=== PATIENT | male | born 1990 | race Caucasian/White ===

== ENCOUNTER 2019-04-24 14:47 | Inpatient (IN) ==
--- NOTE | 2019-04-24 14:52 | Emergency Department Note ---
Disposition Clinical Impression: Suicidal ideation Disposition: Admitted As Inpatient Condition: Fair Time of Disposition: 17:33 Psych HPI - General Chief Complaint: ED Psychiatric Symptoms Stated Complaint: SI Time Seen by Provider: 04/24/19 14:52 Source: patient Mode of arrival: ambulatory Limitations: no limitations Nursing Notes Reviewed: Yes Vital Signs Reviewed: Yes - History of Present Illness HPI Narrative: 29-year-old male no significant past medical history with a psychiatric history of anxiety and depression presenting for a 4 week history of suicidal ideation. Patient states that he has had multiple intrusive thoughts of killing himself but denies active hallucination or plan for suicide. Patient denies any prior attempts at suicide including any traumatic attempts or ingestion of any medications or other toxins and attempt to self-harm. Patient admits to rece ntly smoking marijuana within the last 2-3 days but denies any other drug ingestions or ethanol. Patient states that he has been voluntarily admitted for psychiatric evaluation in the past and that he is coming in today specifically to allow for medication balancing as he feels he is not on the correct dose of Zoloft for his symptoms. Patient states he has a mass next week off work and would like to have an admission during this time to realign his medication regimen. Patient denies any current concerns or complaints. Pt complaint: suicidal ideation, feels depressed, anxiety Onset (ago): month(s) Duration: getting worse History of similar episodes: Yes Improves with: medication, therapy Context: recent drug abuse Alleged intoxication: No Associated Psychiatric Symptoms: suicidal ideation, anxiety Associated symptoms: Reports: denies other symptoms Traumatic symptoms: denies traumatic injury Treatments prior to arrival: none Self harm or harm to others: admits thoughts of self harm, denies having a plan - Related Data Previous Rx's Medication Instructions Recorded Dicyclomine [Bentyl] 10 mg PO QID #20 capsule 03/22/19 Allergies Allergy/AdvReac Type Severity Reaction Status Date / Time polymyxin B Allergy Hives Verified 05/11/18 17:03 Sulfa (Sulfonamide Allergy Hives Verified 05/11/18 17:03 Antibiotics) Review of Systems: *See History of Present Illness for more detail Constitutional: Denies: fever, chills Cardiovascular: Denies: chest pain Respiratory: Denies: dyspnea, cough, hemoptysis Gastrointestinal: Denies: abdominal pain, nausea, vomiting, diarrhea, constipation, hematemesis, melena, hematochezia Genitourinary: Denies: hematuria Musculoskeletal: Denies: back pain, neck pain Neurological: Denies: headache, weakness, lightheadedness/dizziness, numbness, paresthesias, difficulty with ambulation. Endocrine: Denies: fatigue All systems ED: reviewed and negative except as stated. Review of Systems: As Per HPI Past Medical History - Past Medical History Medical history: Reports: non-contributory Psychiatric history: Reports: no psych history - Social History Smoking Status: Never smoker Smokeless Tobacco Status: No Alcohol use: Reports: none Drug use: Reports: none Physical Exam Constitutional: No acute distress, [id number], engaged to conversation, speech is fluid, answers questions appropriately Neuro: GCS 15, no overt focal neurological deficits Head: Atraumatic, normocephalic Eyes: Pupils equal, round and reactive to light, no scleral icterus, no conjunctival injection Neck: Trachea midline without deviation. Anterior neck is supple without swelling. *Chest: Symmetric chest wall rise *Heart: Cardiac rhythm and rate are regular with S1 and S2 , no S3 or S4 appreciated, no murmurs, gallops, rubs, or clicks. *Lungs: Lungs are clear to auscultation bilaterally, without accessory muscle use or prolonged expiratory phase. No wheezes, rhonchi or stridor appreciated. Abdomen: Abdomen is flat, soft to palpation, normal bowel sounds. No abdominal bruit auscultated. Non-distended, non-rigid, no organomegaly, no ascites appreciated. No pulsatile mass, no tenderness or guarding to palpation in all four quadrants, no rebound Extremities: Normal capillary refill without evidence of pedal edema, joint swelling or erythema. Pulses/motor/sensory intact in all 4 extremities. Psychiatric exam: Patient displays a normal affect and mood for the environment. No overt signs of hallucination. Integumentary: warm, dry, intact, normal color. No rash, cyanosis, diaphoresis, erythema, or pallor - General Limitations: no limitations General appearance: alert, in no apparent distress Course Course Narrative: Psychiatric labs to include salicylate, acetaminophen, ethanol, urine toxicology [place] slip is on file Vital Signs Temperature 98.3 F 04/24/19 14:48 Pulse Rate 100 04/24/19 14:48 Respiratory Rate 14 04/24/19 14:48 Blood Pressure 123/67 04/24/19 14:48 O2 Sat by Pulse Oximetry 96 04/24/19 14:48 Temperature 98.3 F 04/24/19 16:10 Pulse Rate 100 04/24/19 16:10 Respiratory Rate 14 04/24/19 16:10 Blood Pressure 123/67 04/24/19 16:10 O2 Sat by Pulse Oximetry 96 04/24/19 16:10 Oxygen Delivery Oxygen Delivery Room Air Psych - MDM Narrative Medical decision making narrative: 1614 hrs.: Labs are back. He does have marijuana in his urine. I spoke with [facility]A for evaluation emergency department. He is in agreement with plan. Sitter's in place an 72 hold is signed. 1733 hrs.: [facility]A has evaluated the patient and are going to admit him at this time. 72 hour hold is still in place. Patient's agreement to the admission. - Lab Data Result diagrams: 04/24/19 15:06 04/24/19 15:06 Lab Results 04/24/19 04/24/19 04/24/19 Range/Units 15:06 15:06 15:31 WBC 8.4 (4.3-11.1) K/mcL RBC 5.01 (4.19-5.50) M/mcL Hgb 15.9 (12.9-16.9) g/dL Hct 46.4 (37.5-50.1) % MCV 92.6 (83.0-100.0) fL MCH 31.7 (28.0-33.3) pg MCHC 34.3 (31.6-35.5) g/dL RDW 12.9 (11.5-14.5) % Plt Count 175 (140-400) K/mcL MPV 12.6 H (9.4-12.4) fL Immature Gran % 0.4 (0-4) % Seg Neutrophils % 69.0 % Lymphocytes % 21.3 % Monocytes % 6.5 % Eosinophils % 2.4 % Basophils % 0.4 % Neutrophils # 5.8 (1.6-8.9) K/mcL Lymphocytes # 1.8 (0.6-4.6) K/mcL Monocytes # 0.5 (0.0-1.3) K/mcL Eosinophils # 0.2 (0.0-0.6) K/mcL Basophils # 0.0 (0.0-0.2) K/mcL Sodium 138 (136-145) mEq/L Potassium 3.5 (3.5-5.1) mEq/L Chloride 104 (98-107) mEq/L Carbon Dioxide 22 L (23-29) mEq/L BUN 10 (6-20) mg/dL Creatinine 0.83 (0.70-1.30) mg/dL Est GFR ( Amer) > 60 (> 60) Est GFR (Non-Af Amer) > 60 (> 60) BUN/Creatinine Ratio 12 (6-26) Glucose 87 (70-105) mg/dL Calculated Osmolality 284 (280-300) Calcium 9.1 (8.6-10.3) mg/dL TSH 0.855 (0.340-5.600) mcIU/mL Urine Color Dark Yellow (Yellow) Urine Clarity Clear (Clear) Urine pH 6.0 (5.0-8.0) pH Units Ur Specific [place] 1.030 H (1.010-1.025) Urine Protein Trace (Neg-Trace) mg/dL Urine Glucose (UA) Normal (Normal) mg/dL Urine Ketones >=160 H (Negative) mg/dL Urine Blood Negative (Negative) Urine Nitrite Negative (Negative) Urine Bilirubin Small H (Negative) Urine Urobilinogen Normal (Normal) mg/dL Ur Leukocyte Esterase Negative (Negative) Ur Culture Indicated? NO (NO) Salicylates < 2.5 L (15.0-30.0) mg/dL Urine Opiates Screen (Zywtfx=260) ng/mL Ur Buprenorphine Scrn (Cutoff=5) ng/mL Acetaminophen < 10 L (10-20) mcg/mL Ur Barbiturates Screen (Frpyte=548) ng/mL Ur Phencyclidine Scrn (Cutoff=25) ng/mL Ur Amphetamines Screen (Gupyzt=0722) ng/mL U Benzodiazepines Scrn (Aozzji=402) ng/mL Urine Cocaine Screen (Cutoff= 300) ng/mL U Marijuana (THC) Screen (Cutoff = 50) ng/mL Ur Drug Screen Interp Ethyl Alcohol < 10 (Less than 10) mg/dL 04/24/19 Range/Units 15:31 WBC (4.3-11.1) K/mcL RBC (4.19-5.50) M/mcL Hgb (12.9-16.9) g/dL Hct (37.5-50.1) % MCV (83.0-100.0) fL MCH (28.0-33.3) pg MCHC (31.6-35.5) g/dL RDW (11.5-14.5) % Plt Count (140-400) K/mcL MPV (9.4-12.4) fL Immature Gran % (0-4) % Seg Neutrophils % % Lymphocytes % % Monocytes % % Eosinophils % % Basophils % % Neutrophils # (1.6-8.9) K/mcL Lymphocytes # (0.6-4.6) K/mcL Monocytes # (0.0-1.3) K/mcL Eosinophils # (0.0-0.6) K/mcL Basophils # (0.0-0.2) K/mcL Sodium (136-145) mEq/L Potassium (3.5-5.1) mEq/L Chloride (98-107) mEq/L Carbon Dioxide (23-29) mEq/L BUN (6-20) mg/dL Creatinine (0.70-1.30) mg/dL Est GFR ( Amer) (> 60) Est GFR (Non-Af Amer) (> 60) BUN/Creatinine Ratio (6-26) Glucose (70-105) mg/dL Calculated Osmolality (280-300) Calcium (8.6-10.3) mg/dL TSH (0.340-5.600) mcIU/mL Urine Color (Yellow) Urine Clarity (Clear) Urine pH (5.0-8.0) pH Units Ur Specific [place] (1.010-1.025) Urine Protein (Neg-Trace) mg/dL Urine Glucose (UA) (Normal) mg/dL Urine Ketones (Negative) mg/dL Urine Blood (Negative) Urine Nitrite (Negative) Urine Bilirubin (Negative) Urine Urobilinogen (Normal) mg/dL Ur Leukocyte Esterase (Negative) Ur Culture Indicated? (NO) Salicylates (15.0-30.0) mg/dL Urine Opiates Screen Negative (Mglqjx=019) ng/mL Ur Buprenorphine Scrn Negative (Cutoff=5) ng/mL Acetaminophen (10-20) mcg/mL Ur Barbiturates Screen Negative (Fpnkqv=426) ng/mL Ur Phencyclidine Scrn Negative (Cutoff=25) ng/mL Ur Amphetamines Screen Negative (Ojosbg=6632) ng/mL U Benzodiazepines Scrn Negative (Uwfkyl=445) ng/mL Urine Cocaine Screen Negative (Cutoff= 300) ng/mL U Marijuana (THC) Screen Positive H (Cutoff = 50) ng/mL Ur Drug Screen Interp See Below Ethyl Alcohol (Less than 10) mg/dL - EKG Data EKG attestation: Yes I reviewed and interpreted this EKG. EKG results narrative: Patient EKG shows sinus rhythm with ventricular rate of 89 bpm, AR interval 155 ms, QRS duration of 8706, QT/QT interval 379/4-5 ms, there are no significant ST segment elevations, depressions, pathologic Q's, abnormal T-wave inversions are noted in lead 3 which may be a normal variant, there are no signs of acute ischemic change. At this time is no prior EKG available for comparison. Psychiatric Medical Clearance - Medical Clearance Checklist Medical History: No Social History Section defined Current Vitals: Last Vital Signs Temp 98.3 F 04/24/19 16:10 Pulse 100 04/24/19 16:10 Resp 14 04/24/19 16:10 BP 123/67 04/24/19 16:10 Pulse Ox 96 04/24/19 16:10 Psychiatric Lab Panel: Drug Levels and Toxicity 04/24/19 04/24/19 15:06 15:31 Urine Opiates Screen Negative Acetaminophen < 10 L Ur Barbiturates Screen Negative Ur Phencyclidine Scrn Negative Ur Amphetamines Screen Negative U Benzodiazepines Scrn Negative Urine Cocaine Screen Negative U Marijuana (THC) Screen Positive H Ethyl Alcohol < 10 Abnormal Labs: Abnormal lab results MPV 12.6 fL (9.4-12.4) H 04/24/19 15:06 Carbon Dioxide 22 mEq/L (23-29) L 04/24/19 15:06 Ur Specific [place] 1.030 (1.010-1.025) H 04/24/19 15:31 >=160 mg/dL (Negative) H 04/24/19 15:31 Small (Negative) H 04/24/19 15:31 Salicylates < 2.5 mg/dL (15.0-30.0) L 04/24/19 15:06 Acetaminophen < 10 mcg/mL (10-20) L 04/24/19 15:06 U Marijuana (THC) Screen Positive ng/mL (Cutoff = 50) H 04/24/19 15:31 Statement of Medical Clearance: I have evaluated the patient, reviewed diagnostic information, and certify that the patient's medical condition is sufficiently stable that transfer to the psychiatric unit does not pose a significant risk of deterioration. Attestation Statement - Attestation Attestation: This documentation is done with the assistance of Dragon dictation. Despite efforts made to ensure accuracy, there may be inaccuracies in flask fitter or spelling and typographical errors. I examined this patient and my medical decision-making was reviewed with the Resident Physician. I agree with the documented findings, disposition and treatment plan as described except to the extent set forth below. Patient was seen and evaluated by and myself, I agree with his evaluation and management plan, I supervised the care the patient throughout her stay. Patient presents to the emergency Department with depression. History of depression going on for quite some time. He is on Zoloft for last 6 weeks he does not think it is made a difference. He does have suicidal ideations no homicidal ideations. No plan at this time. He said he thinks his medications might need adjusted. He has had a previous history of depression about 10 years ago. We will order a workup on him. He will be made a no AMA status was suicide precautions, sitter in place, and then [facility] evaluation once medically cleared. I reviewed the residents documentation and agree with the residents assessment and plan of care. I have personally had face to face time with the patient. (Brief History, Brief Exam, and MDM) I personally supervised and was present for the judge/critical portions of the following procedures completed by the resident: EKG was read and interpreted by the ER resident, under my supervision, I agree with her interpretation.
[2019-04-24 15:42] LABS: Basophils % 0.4 %; Eosinophils # 0.2 K/mcL (0.0-0.6); Eosinophils % 2.4 %; Hematocrit 46.4 % (37.5-50.1); Hemoglobin 15.9 g/dL (12.9-16.9); Immature Granulocytes % 0.4 % (0-4); Lymphocytes # 1.8 K/mcL (0.6-4.6); Lymphocytes % 21.3 %; Mean Corpuscular HGB Conc 34.3 g/dL (31.6-35.5); Mean Corpuscular Hemoglobin 31.7 pg (28.0-33.3); Mean Corpuscular Volume 92.6 fL (83.0-100.0); Mean Platelet Volume 12.6 fL (9.4-12.4); Monocytes # 0.5 K/mcL (0.0-1.3); Monocytes % 6.5 %; Neutrophils # 5.8 K/mcL (1.6-8.9); Platelet Count 175 K/mcL (140-400); Red Blood Count 5.01 M/mcL (4.19-5.50); Red Cell Distribution Width 12.9 % (11.5-14.5); White Blood Count 8.4 K/mcL (4.3-11.1)
[2019-04-24 15:51] LABS: Bilirubin,Urine Small (Negative); Blood,Urine Negative (Negative); Clarity,Urine Clear (Clear); Color,Urine Dark Yellow (Yellow); Glucose,Urine (UA) Normal (Normal); Ketones,Urine >=160 mg/dL (Negative); Leukocyte Esterase,Urine Negative (Negative); Nitrite,Urine Negative (Negative); Protein,Urine Trace mg/dL (Neg-Trace); Urobilinogen,Urine Normal (Normal)
[2019-04-24 15:53] LABS: Amphetamine Screen,Urine Negative ng/mL (Cutoff=1000); Barbiturate Screen,Urine Negative ng/mL (Cutoff=200); Benzodiazepines Screen,Urine Negative ng/mL (Cutoff=200); Cannabinoid Screen,Urine Positive ng/mL (Cutoff = 50); Cocaine Screen,Urine Negative ng/mL (Cutoff= 300); Opiate Screen,Urine Negative ng/mL (Cutoff=300); Phencyclidine Screen,Urine Negative ng/mL (Cutoff=25)
[2019-04-24 16:01] LABS: Acetaminophen < 10 mcg/mL (10-20); BUN/Creatinine Ratio 12 (6-26); Blood Urea Nitrogen 10 mg/dL (6-20); Calcium 9.1 mg/dL (8.6-10.3); Carbon Dioxide 22 mEq/L (23-29); Chloride 104 mEq/L (98-107); Ethanol < 10 mg/dL (Less than 10); Glucose 87 mg/dL (70-105); Osmolality,Calculated 284 (280-300); Potassium 3.5 mEq/L (3.5-5.1); Salicylate < 2.5 mg/dL (15.0-30.0); Sodium 138 mEq/L (136-145); eGFR For African Americans > 60 (> 60); eGFR For Non-African Americans > 60 (> 60)
[2019-04-24 16:15] LABS: Thyroid Stimulating Hormone 0.855 mcIU/mL (0.340-5.600)
[2019-04-24] MEDS ORDERED: Acetaminophen 325 MG TABLET PO PRN (18:31)
[2019-04-24] MEDS ORDERED: Ibuprofen 400 MG TABLET PO PRN (18:31)
[2019-04-24] MEDS ORDERED: MOM Conc 10 ML UD.LIQ PO PRN (18:31)
[2019-04-24] MEDS ORDERED: Mag Hydrox/Al Hydrox/Simeth 30 ML UDC PO PRN (18:31)
[2019-04-24] MEDS ORDERED: traZODone 50 MG TABLET PO PRN (18:31)
[2019-04-24] MEDS ORDERED: *HR* LORazepam 2 MG/ML VIAL IM PRN (18:31)
[2019-04-24] MEDS ORDERED: Haloperidol Lactate 5 MG/ML VIAL IM PRN (18:31)
[2019-04-24] MEDS ORDERED: hydrOXYzine pamoate 25 MG CAPSULE PO PRN (18:31)
[2019-04-24] MEDS ORDERED: *HR* LORazepam 1 MG TABLET PO PRN (18:31)
[2019-04-25] MEDS: Nicotine 14 MG PATCH.TD24 TD SCH (10:00)
--- NOTE | 2019-04-25 11:21 | Psychiatry History & Physical ---
Date of Encounter: 04/25/19 Time of Encounter: 11:14 History of Present Illness Patient Stated Chief Complaint: suicidal ideation Medicare Admission Attestation: For traditional Medicare patients the provided hospital inpatient services are reasonable and necessary and in the case of services not specified as inpatient-only under 42 CFR 419.22 (n), that they are appropriately provided as inpatient services in accordance 42 CFR 412.3. For Critical Access Hospital the patient may reasonably be expected to be discharged or transferred to a hospital within 96 hours after admission to the Critical Access Hospital. Admitted From: Home Plans for Post Hospital Care: Home History of Present Illness: Mr. Banda is a 29 year old male who was admitted for SI with no intent or plan. Client states that he has experienced SI in the past but that this time he has had SI for four weeks with no relief. Client has never been hospitalized nor made a suicide attempt. Client has seen psychiatrists and counselors on an outpatient basis but reports no real benefit from past interactions. He is scheduled to be seen as a new patient at the [facility] later this month. Client reports past diagnoses of Bipolar Disorder, ADHD, and OCD. Does not appear to have had any true manic episodes based on past symptoms. Currently client is taking Zoloft from his PCP with no clinical improvement. In the past he has tried Seroquel, Seroquel XR, and Celexa. Client states he is physically healthy other than IBS. No AOD use other than THC. Strong family history of mental health problems. Mother, Father, and Siblings all have depression and mother gets suicidal thoughts. No suicide completions in family members. Client states he believes OCD is his main problem and that his SI is directly related to intrusive thoughts he gets (which mostly center on work). Client denies having any compulsions. Discussed treatment options and client would like to try Fluvoxamine sine it is used primarily to help manage OCD. Discussed risks, benefits, and side effects. Past Med Surg Social Fam HX - Past Medical History Medical history: non-contributory, asthma - Past Psychiatric History Psychiatric history: Reports: anxiety, ADHD, bipolar, depression Family psychiatric history: Yes Family Psychiatric History Details: mother, father, and siblings all have depression Family History of Suicide: None - Social History Smoking Status: Current every day smoker Smokeless Tobacco Status: No Alcohol use: none Drug use: marijuana Medications & Allergies Dicyclomine [Bentyl] 10 mg PO QID #20 capsule 03/22/19 [Rx] Allergy/AdvReac Type Severity Reaction Status Date / Time polymyxin B Allergy Hives Verified 05/11/18 17:03 Sulfa (Sulfonamide Allergy Hives Verified 05/11/18 17:03 Antibiotics) Review of Systems Constitutional: Denies: fever, chills, weakness, weight change Eyes: Denies: eye pain, vision change Ears, Nose, Throat: Denies: ear pain, throat pain, dental pain, hearing loss, congestion Cardiovascular: Denies: chest pain, palpitations, dyspnea on exertion Respiratory: Denies: cough, dyspnea, wheezes Gastrointestinal: Denies: abdominal pain, nausea, vomiting, diarrhea, constipation Genitourinary male: Denies: urgency, dysuria, frequency, genital lesions Musculoskeletal: Denies: joint swelling, joint pain Integumentary: Denies: rash, lesions, pruritus Neurological: Denies: headache, weakness, numbness, memory loss Endocrine: Denies: fatigue, heat or cold intolerance Hematologic/Lymphatic: Denies: easy bruising, lymphadenopathy Allergic/Immunologic: Denies: urticaria, itchy eyes Exam - HEENT Head exam IM: Present: atraumatic Eye exam IM: Present: EOMI, normal appearance, PERRL ENT exam IM: Present: normal exam - Neurological Neurological exam: Present: CN II-XII intact - Respiratory Respiratory exam IM: Present: CTAB - GI/Abdominal GI/Abdominal exam IM: Present: normal bowel sounds, soft. Absent: tenderness - Extremities Extremities exam IM: Present: full ROM - Skin Skin exam IM: Present: dry, warm - Constitutional Vitals: Temp Pulse Resp BP Pulse Ox 98.6 F 68 16 128/81 95 04/25/19 09:00 04/25/19 09:00 04/25/19 09:00 04/25/19 09:00 04/25/19 09:00 General appearance: age & developmentally appropriate, well-groomed, well-nourished - Musculoskeletal Gait: normal Station: relaxed Strength & Tone: normal for patient - Psychiatric Patient Orientation: Yes Person, Yes Time, Yes Place Level of alertness: Alert Behavior: calm, cooperative Psychomotor activity: Normal Eye Contact: Maintains Eye Contact Mood Description: Depressed, Anxious Affect description: blunted Speech Volume: Normal Speech pattern: normal rate, normal rhythm, normal tone, fluent, spontaneous Language & Vocabulary: consistent with education Thought Process: Linear, Goal Oriented Thought Content: Yes Suicidal ideation, No Homicidal ideation, No Overt de lusions Perceptual Disturbances: No Auditory hallucinations, No Visual hallucinations Attention Span Ability: Capable of Focused Attention Memory Description: Grossly Intact Patient Reliability: Reliable Historian Fund of knowledge: Yes abstraction ability, Yes average, Yes aware of current events Intelligence Estimate: Average Judgment: Fair Insight: Partial Results - Drug Levels and Toxicology Drug Levels and Toxicology: Drug Levels and Toxicity 04/24/19 04/24/19 15:06 15:31 Urine Opiates Screen Negative Acetaminophen < 10 L Ur Barbiturates Screen Negative Ur Phencyclidine Scrn Negative Ur Amphetamines Screen Negative U Benzodiazepines Scrn Negative Urine Cocaine Screen Negative U Marijuana (THC) Screen Positive H Ethyl Alcohol < 10 - Labs Labs: Laboratory Last Values WBC 8.4 K/mcL (4.3-11.1) 04/24/19 15:06 RBC 5.01 M/mcL (4.19-5.50) 04/24/19 15:06 Hgb 15.9 g/dL (12.9-16.9) 04/24/19 15:06 Hct 46.4 % (37.5-50.1) 04/24/19 15:06 MCV 92.6 fL (83.0-100.0) 04/24/19 15:06 MCH 31.7 pg (28.0-33.3) 04/24/19 15:06 MCHC 34.3 g/dL (31.6-35.5) 04/24/19 15:06 RDW 12.9 % (11.5-14.5) 04/24/19 15:06 Plt Count 175 K/mcL (140-400) 04/24/19 15:06 MPV 12.6 fL (9.4-12.4) H 04/24/19 15:06 Immature Gran % 0.4 % (0-4) 04/24/19 15:06 Seg Neutrophils % 69.0 % 04/24/19 15:06 21.3 % 04/24/19 15:06 6.5 % 04/24/19 15:06 2.4 % 04/24/19 15:06 0.4 % 04/24/19 15:06 5.8 K/mcL (1.6-8.9) 04/24/19 15:06 1.8 K/mcL (0.6-4.6) 04/24/19 15:06 0.5 K/mcL (0.0-1.3) 04/24/19 15:06 0.2 K/mcL (0.0-0.6) 04/24/19 15:06 0.0 K/mcL (0.0-0.2) 04/24/19 15:06 Sodium 138 mEq/L (136-145) 04/24/19 15:06 Potassium 3.5 mEq/L (3.5-5.1) 04/24/19 15:06 Chloride 104 mEq/L (98-107) 04/24/19 15:06 Carbon Dioxide 22 mEq/L (23-29) L 04/24/19 15:06 BUN 10 mg/dL (6-20) 04/24/19 15:06 0.83 mg/dL (0.70-1.30) 04/24/19 15:06 Est GFR ( Amer) > 60 (> 60) 04/24/19 15:06 Est GFR (Non-Af Amer) > 60 (> 60) 04/24/19 15:06 12 (6-26) 04/24/19 15:06 Glucose 87 mg/dL (70-105) 04/24/19 15:06 284 (280-300) 04/24/19 15:06 Calcium 9.1 mg/dL (8.6-10.3) 04/24/19 15:06 TSH 0.855 mcIU/mL (0.340-5.600) 04/24/19 15:06 Dark Yellow (Yellow) 04/24/19 15:31 Clear (Clear) 04/24/19 15:31 6.0 pH Units (5.0-8.0) 04/24/19 15:31 Ur Specific [place] 1.030 (1.010-1.025) H 04/24/19 15:31 Trace mg/dL (Neg-Trace) 04/24/19 15:31 Normal mg/dL (Normal) 04/24/19 15:31 >=160 mg/dL (Negative) H 04/24/19 15:31 Negative (Negative) 04/24/19 15:31 Negative (Negative) 04/24/19 15:31 Small (Negative) H 04/24/19 15:31 Normal mg/dL (Normal) 04/24/19 15:31 Ur Leukocyte Esterase Negative (Negative) 04/24/19 15:31 Ur Culture Indicated? NO (NO) 04/24/19 15:31 Salicylates < 2.5 mg/dL (15.0-30.0) L 04/24/19 15:06 Negative ng/mL (Xaywmk=633) 04/24/19 15:31 Ur Buprenorphine Scrn Negative ng/mL (Cutoff=5) 04/24/19 15:31 Acetaminophen < 10 mcg/mL (10-20) L 04/24/19 15:06 Ur Barbiturates Screen Negative ng/mL (Wzcfcj=206) 04/24/19 15:31 Ur Phencyclidine Scrn Negative ng/mL (Cutoff=25) 04/24/19 15:31 Ur Amphetamines Screen Negative ng/mL (Htkzlj=8078) 04/24/19 15:31 U Benzodiazepines Scrn Negative ng/mL (Yzpyrk=659) 04/24/19 15:31 Negative ng/mL (Cutoff= 300) 04/24/19 15:31 U Marijuana (THC) Screen Positive ng/mL (Cutoff = 50) H 04/24/19 15:31 Ur Drug Screen Interp See Below 04/24/19 15:31 Ethyl Alcohol < 10 mg/dL (Less than 10) 04/24/19 15:06 Assessment and Plan (1) Bipolar II disorder Current visit: Yes Status: Acute Plan: Admit inpatient for safety and stabilization, Close observation, Suicide Precautions per unit protocol, Encourage participation in unit milieu, Group The rapy, Monitor sleep, Monitor appetite Risks, benefits, side effects, alternatives discussed w/pt: Yes Patient agreeable to treatment: Yes Plans for Post Hospital Care: Home Estimated Length of Stay (Days): 4 (2) Obsessive compulsive disorder Current visit: Yes Status: Acute Plan: Admit inpatient for safety and stabilization, Close observation, Suicide Precautions per unit protocol, Encourage participation in unit milieu, Group Therapy, Monitor sleep, Monitor appetite Risks, benefits, side effects, alternatives discussed w/pt: Yes Patient agreeable to treatment: Yes Plans for Post Hospital Care: Home Estimated Length of Stay (Days): 4 Qualifiers: Obsessive-compulsive disorder type: other Qualified Code(s): F42.8 - Other obsessive-compulsive disorder
[2019-04-26] MEDS: Nicotine 14 MG PATCH.TD24 TD SCH (09:02)
--- NOTE | 2019-04-26 10:12 | Psychiatry Progress Note ---
Date of Encounter: 04/29/19 Time of Encounter: 10:10 Review of Systems Constitutional: Denies: fever, chills, night sweats Gastrointestinal: Reports: diarrhea (Reports diarrhea last night and history of Irritable bowel syndrome.) Psychiatric: Reports: depression, suicidal ideation. Denies: anxiety, change in appetite, homicidal ideation, auditory hallucinations, visual hallucinations, anhedonia Results - Vital Signs Vital Signs: Temp Pulse Resp BP Pulse Ox 97.4 F L 54 16 106/74 96 04/26/19 09:00 04/26/19 09:00 04/26/19 09:00 04/26/19 09:00 04/26/19 09:00 Consult Discharge Plan - Plan Instructions: Bipolar Disorder (DC) Referrals: [facility] [Outside] - 05/10/19 2:00 pm (You have an appointment scheduled for Friday, May 10, 2019 at 2:[address] Veronica Goncalves D.O. for medication management. Please contact the office at least 24 hours in advance if you are unable to keep your appointment(s). ) Azael Luciano MD [Non-Partnered Physician] - Prescriptions: fluvoxaMINE [Luvox] 100 mg PO HS #28 tablet - Attending Attestation I examined this patient and my medical decision-making was reviewed with the Resident Physician. I agree with the documented findings, disposition and treatment plan as described except to the extent set forth below. Dr. Stanton saw the patient on 04/26/19 and agrees with the resident note. Psychiatry Exam - Constitutional Vitals: Temp Pulse Resp BP Pulse Ox 97.4 F L 54 16 106/74 96 04/26/19 09:00 04/26/19 09:00 04/26/19 09:00 04/26/19 09:00 04/26/19 09:00 General appearance: age & developmentally appropriate - Musculoskeletal Gait: normal Station: other, relaxed Strength & Tone: normal for patient - Psychiatric Patient Orientation: Yes Person, Yes Time, Yes Place, Yes Circumstance
--- NOTE | 2019-04-26 10:21 | Psychiatry Progress Note ---
Date of Encounter: 04/29/19 Time of Encounter: 10:19 Subjective Interval history: Client describes mood as "about average" with depressed affect. Client reports diminished suicidal ideation since yesterday without plan. Average insight about condition, client believes depression "is mainly from OCD". Last night client reports diarrhea and is on Loperamide. No report of obsessions, but does report compulsions in his work. Will maintain Luvox at current dosage based on clients suicidal ideation decreasing and mood improving. Review of Systems Constitutional: Denies: fever, chills, weakness, night sweats Gastrointestinal: Reports: diarrhea (Client reports one episode of diarrhea last night with history of irritable bowel syndrome.) Neurological: Denies: headache, confusion Psychiatric: Reports: depression, suicidal ideation. Denies: anxiety, change in appetite, homicidal ideation, auditory hallucinations, visual hallucinations, anhedonia Results - Vital Signs Vital Signs: Temp Pulse Resp BP Pulse Ox 97.4 F L 54 16 106/74 96 04/26/19 09:00 04/26/19 09:00 04/26/19 09:00 04/26/19 09:00 04/26/19 09:00 Assessment and Plan (1) Bipolar II disorder Status: Resolved Plan: Continue hospitalization, Close observation, Suicide Precautions per unit protocol, Encourage participation in unit milieu, Monitor sleep Risks, benefits, side effects, alternatives discussed w/pt: Yes Patient agreeable to treatment: Yes (2) Obsessive compulsive disorder Status: Suspected Plan: Continue hospitalization, Close observation, Encourage participation in unit milieu, Family/Supportive other meeting Risks, benefits, side effects, alternatives discussed w/pt: Yes Patient agreeable to treatment: Yes Qualifiers: Obsessive-compulsive disorder type: other Qualified Code(s): F42.8 - Other obsessive-compulsive disorder (3) Suicidal ideation Status: Resolved Plan: Continue hospitalization (Plan for discharge tomorrow if no report of suicidal ideation. ), Close observation, Suicide Precautions per unit protocol Consult Discharge Plan - Plan Instructions: Bipolar Disorder (DC) Referrals: [facility] [Outside] - 05/10/19 2:00 pm (You have an appointment scheduled for Friday, May 10, 2019 at 2:[address] Veronica Goncalves D.O. for medication management. Please contact the office at least 24 hours in advance if you are unable to keep your appointment(s). ) Azael Luciano MD [Non-Partnered Physician] - Prescriptions: fluvoxaMINE [Luvox] 100 mg PO HS #28 tablet - Attending Attestation I examined this patient and my medical decision-making was reviewed with the Resident Physician. I agree with the documented findings, disposition and treatment plan as described except to the extent set forth below. Dr. Stanton saw the patient on 04/26/19 and agrees with the resident note. Psychiatry Exam - Constitutional Vitals: Temp Pulse Resp BP Pulse Ox 97.4 F L 54 16 106/74 96 04/26/19 09:00 04/26/19 09:00 04/26/19 09:00 04/26/19 09:00 04/26/19 09:00 General appearance: age & developmentally appropriate - Musculoskeletal Station: relaxed (complete range of motion in all extremities. ) Strength & Tone: normal for patient - Psychiatric Patient Orientation: Yes Person, Yes Time, Yes Place, Yes Circumstance Level of alertness: Alert Behavior: calm Psychomotor activity: Normal Eye Contact: Maintains Eye Contact Mood Description: Depressed Affect description: congruent with mood Speech Volume: Normal Speech pattern: normal rate, normal rhythm, normal tone, fluent, appropriate Language & Vocabulary: consistent with education Thought Process: Intact Thought Content: Yes Suicidal ideation, No Homicidal ideation Perceptual Disturbances: No Reacting to internal stimuli, No Auditory hallucinations, No Visual hallucinations, No Tactile hallucinations Attention Span Ability: Capable of Focused Attention Memory Description: Grossly Intact Patient Reliability: Reliable Historian Fund of knowledge: Yes average Intelligence Estimate: Average Judgment: Fair Insight: Partial
--- NOTE | 2019-04-26 22:14 | Electrocardiograph Report ---
[place] [id number] Test Date: 2019-04-24 Pat Name: Francesco Banda Department: 104 Room: 1A44 Gender: M Lathe Turner: Ekp : 1990 Requested By: Shaw Alegria Order Number: [id number] Reading MD: Micaela Salmeron Measurements Intervals [place] Rate: 89 P: 52 CO: 155 QRS: -15 QRSD: 87 T: 30 QT: 379 QTc: 425 Interpretive Statements SINUS RHYTHM Electronically Signed On 04-26-2019 22:13:37 EDT by Micaela Salmeron
[2019-04-27] MEDS: Nicotine 14 MG PATCH.TD24 TD SCH (08:32)
[2019-04-27 09:54] VITALS: BP 123/89
--- NOTE | 2019-04-27 09:59 | Discharge Summary ---
Date of Encounter: 04/27/19 Time of Encounter: 09:57 Diagnosis - Discharge Diagnosis (1) Bipolar II disorder Status: Resolved (2) Obsessive compulsive disorder Status: Suspected Qualifiers: Obsessive-compulsive disorder type: other Qualified Code(s): F42.8 - Other obsessive-compulsive disorder (3) Suicidal ideation Status: Resolved Medications - Discharge Medications Prescriptions: fluvoxaMINE [Luvox] 100 mg PO HS #28 tablet Loperamide HCl [Anti-Diarrheal] 2 mg PO AD PRN 04/25/19 [History] Loratadine [Claritin] 10 mg PO DAILY 04/25/19 [History] fluvoxaMINE [Luvox] 100 mg PO HS #28 tablet 04/27/19 [Rx] Allergy/AdvReac Type Severity Reaction Status Date / Time polymyxin B Allergy Hives Verified 04/25/19 17:29 Sulfa (Sulfonamide Allergy Hives Verified 04/25/19 17:29 Antibiotics) Results Procedures and tests throughout hospitalization: Completed Lab Orders Category Date Time Status Acetaminophen Stat Lab 04/24/19 15:06 Completed Basic Metabolic Panel Stat Lab 04/24/19 15:06 Completed Complete Blood Count [HEME] Stat Lab 04/24/19 15:06 Completed Ethanol Stat Lab 04/24/19 15:06 Completed Salicylate Stat Lab 04/24/19 15:06 Completed Thyroid Stimulating Hormone Stat Lab 04/24/19 15:06 Completed Urinalysis Reflex Cult & Micro [URIN] Stat Lab 04/24/19 15:31 Completed Urine tox screen [Drug Screen, Urine] [UCHEM] Stat Lab 04/24/19 15:31 Completed Provider Date of admission: 04/26/19 07:50 Primary care physician: PCP NONE Discharging clinician: Ranjit Beverly Psychiatry Exam - Constitutional Vitals: Temp Pulse Resp BP Pulse Ox 98.1 F 72 16 123/89 96 04/27/19 09:00 04/27/19 09:00 04/27/19 09:00 04/27/19 09:00 04/27/19 09:00 General appearance: age & developmentally appropriate - Musculoskeletal Gait: normal Station: relaxed Strength & Tone: normal for patient - Psychiatric Patient Orientation: Yes Person, Yes Time, Yes Place, Yes Circumstance Level of alertness: Alert Behavior: calm, cooperative Psychomotor activity: Normal Eye Contact: Maintains Eye Contact Mood Description: Euthymic/stable Patient description of mood: Client states mood is "excited, happy". Affect description: congruent with mood Speech Volume: Normal Speech pattern: normal rate, normal rhythm, normal tone, fluent, appropriate, clear, coherent Language & Vocabulary: consistent with education Thought Process: Intact, Logical, Goal Oriented Thought Content: Yes Intact, Yes Suicidal ideation, No Homicidal ideation, No Overt delusions, No Ideas of reference Perceptual Disturbances: No Reacting to internal stimuli, No Auditory hallucinations, No Visual hallucinations, No Tactile hallucinations Attention Span Ability: Capable of Focused Attention Memory Description: Grossly Intact Patient Reliability: Reliable Historian Fund of knowledge: Yes abstraction ability Intelligence Estimate: Average Judgment: Good Insight: Full Hospital Course Hospital course: Mr. Banda is a 29 year old male Time spent discussing smoking cessation with patient: 3 to 10 minutes Does patient wish to continue nicotine replacement upon disc: No (Client states he would rather vape instead.) - Time Spent with Patient Total time spent providing and/or coordinating discharge services: Less than 30 minutes Assessment and Plan - Patient/Caregiver Discharge Instructions Activity: resume usual activities as tolerated Diet: regular diet - Follow up Plan Follow up with: NONE,PCP [Primary Care Provider] - Overall status at discharge: patient is back to baseline Disposition: Home, Self-Care Quality - Multiple Antipsychotics Patient discharged on 2 or more antipsychotic medications: No - Justification Documentation of: Other justification (Client has improved to baseline with some thoughts of suicidal ideation without plan. Client appears at baseline, agrees to follow-up with pcp and shows full insight into mental condition.) - Attending Attestation I examined this patient and my medical decision-making was reviewed with the Resident Physician. I agree with the documented findings, disposition and treatment plan as described except to the extent set forth below. Client reports he is feeling much better. Feels the Luvox is working for him. Denies having any SI, intent, or plan today. Denies having any intrusive thoughts. Very encouraged that he is on the right regimen. Brighter affect today. Future oriented. Looking forward to going home. "I was ready to go home yesterday." Aware SI may return but feels confident he can deal with it. Has never acted on suicidal thoughts and never had intent or plan this admission. Wanted a medication that would lessen SI and "OCD" and states he definitely got what he needed. Has strong supports and will be linked with outpatient follow-up prior to discharge.
== END 2019-04-27 11:35 | disposition home or self-care (01) | DRG 753 ==
LOC: EMEROOARM 14:47 → 1ANU 17:34 → INTOOBSV 17:34 → 1ANU 18:19 → SUATTDRO 04-26 07:50
PROVIDERS: ADMIT Psychiatry & Neurology Psychiatry; ATTEND Psychiatry & Neurology Psychiatry